=== PATIENT | female | born 1980 | race American Indian/Alaskan Native ===

== ENCOUNTER 2020-01-15 22:25 | Emergency (ER) | payer OTHER ==
[2020-01-15 23:00] VITALS: BP 139/87
--- NOTE | 2020-01-16 02:54 | Emergency Department Report ---
- General Chief complaint: Wound/Laceration Stated complaint: RT ARM SPIDER BITE/SWOLLEN Time Seen by Provider: 01/16/20 02:49 Source: patient Mode of arrival: Ambulatory Limitations: No Limitations - History of Present Illness Initial comments: 39-year-old -[place] female presents to the emergency room thinking that she may have been bitten by a spider to her right forearm since last night. Patient reports now redness swelling and warmth. She does report a clearish drainage from the bite kg. Patient reports her pains a 7 out of 10. Last menstrual period was 12/21/2019. MD complaint: abscess/boil -: Last night Tetanus Up to Date: yes Severity scale (0 -10): 7 Quality: aching, sharp, other (tightness) Improves with: none Worsens with: palpation, movement Context: none Associated symptoms: denies other symptoms Treatments Prior to Arrival: none - Related Data Previous Rx's Medication Instructions Recorded Last Taken Type cephALEXin [Keflex] 500 mg PO Q8HR 7 Days #21 cap 01/16/20 Unknown Rx Allergies Allergy/AdvReac Type Severity Reaction Status Date / Time No Known Allergies Allergy Unverified 01/15/20 23:05 Abscess Boil HPI - HPI Chief Complaint: Wound/Laceration Stated Complaint: RT ARM SPIDER BITE/SWOLLEN Time Seen by Provider: 01/16/20 02:49 Home Medications: Previous Rx's Medication Instructions Recorded Last Taken Type cephALEXin [Keflex] 500 mg PO Q8HR 7 Days #21 cap 01/16/20 Unknown Rx Allergies/Adverse Reactions: Allergies Allergy/AdvReac Type Severity Reaction Status Date / Time No Known Allergies Allergy Unverified 01/15/20 23:05 ED Review of Systems ROS: Stated complaint: RT ARM SPIDER BITE/SWOLLEN Other details as noted in HPI ED Past Medical Hx - Past Medical History Previous Medical History?: No - Surgical History Past Surgical History?: Yes Additional Surgical History: X 2 - Social History Smoking Status: Current Every Day Smoker Substance Use Type: None - Medications Home Medications: Home Medications Medication Instructions Recorded Confirmed Last Taken Type cephALEXin [Keflex] 500 mg PO Q8HR 7 Days #21 cap 01/16/20 Unknown Rx ED Physical Exam - General Limitations: No Limitations General appearance: alert, in no apparent distress - Head Head exam: Present: atraumatic, normocephalic - Eye Eye exam: Present: normal appearance - ENT ENT exam: Present: mucous membranes moist - Neck Neck exam: Present: normal inspection, full ROM - Neurological Exam Neurological exam: Present: alert, oriented X3, normal gait - Psychiatric Psychiatric exam: Present: normal affect, normal mood - Expanded Skin Exam Expanded Type of lesion: Present: bite/sting Distribution of rash: RUE Description of rash: Present: tenderness, erythematous, swelling ED Course Vital Signs 01/15/20 22:46 Temperature 98.3 F Pulse Rate 79 Respiratory 18 Rate Blood Pressure 139/87 O2 Sat by Pulse 99 Oximetry ED Medical Decision Making - Medical Decision Making 39-year-old -[place] female presents to the emergency room thinking that she may have been bitten by a spider to her right forearm since last night. Patient reports now redness swelling and warmth. She does report a clearish drainage from the bite kg. Patient reports her pains a 7 out of 10. Last menstrual period was 12/21/2019. Patient be placed on Keflex for possible cellulitis. Instructed to take Tylenol or ibuprofen for pain management. Critical care attestation.: If time is entered above; I have spent that time in minutes in the direct care of this critically ill patient, excluding procedure time. ED Disposition Clinical Impression: Cellulitis of forearm, right Disposition: [id number] TO HOME OR SELFCARE Is pt being admited?: No Does the pt Need Aspirin: No Condition: Stable Instructions: Cellulitis (ED) Additional Instructions: Complete antibiotics as prescribed. Pain medication such as ibuprofen or Tylenol as needed. Follow-up with your primary care provider. Prescriptions: cephALEXin [Keflex] 500 mg PO Q8HR 7 Days #21 cap Referrals: PRIMARY MD [facility] [Primary Care Provider] - 3-5 Days [facility] [Provider Group] - 3-5 Days
== END 2020-01-16 02:55 | disposition home or self-care (01) ==
LOC: ED 22:25
DX: L03.113 Cellulitis of right upper limb (principal); F17.200 Nicotine dependence, unspecified, uncomplicated; Z98.890 Other specified postprocedural states; Z79.899 Other long term (current) drug therapy
CPT/HCPCS: 99282

== ENCOUNTER 2021-04-21 20:17 | Emergency (ER) | payer OTHER | END 2021-04-21 21:38 | disposition left against medical advice (07) | LOC: ED 20:17 | DX: Z00.00 Encounter for general adult medical examination without abnormal findings (principal); Z53.21 Procedure and treatment not carried out due to patient leaving prior to being seen by health care provider ==